=== PATIENT | male | born 1990 | race Caucasian/White ===

== ENCOUNTER 2024-05-14 20:37 | Emergency (ER) | payer BC, MEDICAID ==
[~2024-05-14] VITALS: Ht 172.7 cm; Wt 73.0 kg
[~2024-05-14 20:37] MED LIST: TOPUD MT
[2024-05-14 21:02] VITALS: BP 129/79; PULSE 75; RESP 15; TEMP 36.7; O2SAT 96
[2024-05-14] MEDS: IBUPROFEN 600MG TABLET PO STA (21:50)
== END 2024-05-15 | disposition left against medical advice (07) ==
LOC: ER 20:37
DX: R07.89 Other chest pain (principal); I25.10 Atherosclerotic heart disease of native coronary artery without angina pectoris
CPT/HCPCS: 93005; 99283